=== PATIENT | female | born 1985 | race Caucasian/White ===

== ENCOUNTER 2021-04-21 16:31 | Outpatient (CLI) | payer OTHER, SELFPAY ==
--- NOTE | 2021-04-21 16:46 | XR_ITS ---
WS: [id number] Left foot, 3 views, 04/21/2021 Clinical Data: LT. FOOT PAIN Comparison: None. Findings: No fractures or dislocations are seen. No bone destruction or erosion is noted. The joint spaces and soft tissues are normal. A ring around the second toe obscures minimal detail. There is a plantar spur and an Achilles spur. XR/XR foot LT min 3V* [id number] Impression: Negative left foot.
== END 2021-04-21 16:32 | disposition home or self-care (01) ==
PROVIDERS: Visit Provider Nurse Practitioner Family
DX: M79.672 Pain in left foot (principal)
CPT/HCPCS: 73630

== ENCOUNTER 2021-06-30 16:37 | Outpatient (CLI) | payer OTHER, SELFPAY | END 2021-06-30 16:38 | disposition home or self-care (01) | LOC: SPT 16:37 | PROVIDERS: Visit Provider Podiatrist Foot & Ankle Surgery | DX: Z46.89 Encounter for fitting and adjustment of other specified devices (principal); M76.72 Peroneal tendinitis, left leg | CPT/HCPCS: 97760; L4361 ==

== ENCOUNTER 2025-08-04 16:48 | Emergency (ER) | payer OTHER, SELFPAY ==
--- OUTSIDE RECORDS SUMMARY | 2025-08-04 16:55 | XMS_ITS | Data Portability ---
Author Organization AIRAM [facility], [place], [facility] Address [address] [facility] [address] [place] [address] Care Team Providers Care Gaming Department Head Name Role Phone JUSTINE KHAN Primary Care Provider Unavaila ble Assessment Encounter Date Assessment Date Assessment LastModified by Organization Details LastModified Time 08/15/2023 08/15/2023 Rescheduled. Not available 08/17/2023 23:57:45 09/19/2023 09/19/2023 We discussed options including removing her IUD. She will consider the options and let us know if when she decides she wants it removed. Not available 09/21/2023 06:45:26 Plan of Treatment Reminders Order Date Submit Date Provider Last Modified By Organization Details Last Modified Time Details Appointments None recorded. Lab beta-HCG, qualitative , serum or plasma 2023 024 [employer] [facility], [address] [facility] [address], [address] [place], [id number], 4 21:11:40 CBC 2023 024 [facility], [address], [address], [place], [address], 4 11:48:42 prolactin, serum 2023 024 [employer] [facility], [address] [facility] , [address], [place], [id number], 4 21:11:39 TSH, serum or plasma [address] [facility] ([facility]), [address] [place], [address], 4 14:31:19 FSH (follicle-s timulating hormone), serum 2023 024 [employer] [facility], [address] [facility] , [address], [place], [address], 4 21:11:38 testosteron e, free, serum 2023 024 [employer] [facility], [address] [facility] , [address], [place], [address], 4 21:11:40 estradiol, serum 2023 024 [facility] [employer] [facility], [address] [facility] , [address], [place], [address], 4 21:11:39 Referral orthopedic surgeon referral 2024 025 [email or web address] 4 Judith Nicole MD, [address] [place], [address], 5 08:44:31 Procedures None recorded. Surgeries None recorded. Imaging XR, knee, 3 view 2024 025 [email or web address] 2 [facility] ([facility]), [address] [place], [address], 5 15:30:20 MRI, knee, w/o contrast 2024 025 [email or web address] 4 [employer] [facility], [address] [place] [address], [address], 5 08:44:17 US, transvagina l - [id number] 2023 024 [email or web address] 3 [facility] ([facility]), [address] [place], [address], 4 08:29:20 US, pelvis 2023 024 [email or web address] 2 [facility] ([facility]), [address] [place], [address], 4 13:37:32 Medication Orders None recorded. Patient TargetsNo targets recorded. Patient InstructionsNo instructions recorded. Reason for Referral Orthopedic Surgeon Referral for Pain of right knee joint Referring Physician: Sonam Meneses, Family Medicine, Encounter Date: 07/15/2025 Results Created Date Observation Date Name Description Value Unit Range Abnormal Flag Note LastModifiedBy Organization Detail LastModifiedTime 03/14/20 24 03/14/2024 CBC WBC 6.4 x10 4.0-10 .5 Not Available [facility] [address] [facility] [address], [place], [address], 03/14/2024 11:48:42 03/14/20 24 03/14/2024 CBC RBC 5.27 x10 3.50-5 .50 Not Available [facility] [address] [facility] [address] [facility] [address], [place], [address], 03/14/2024 11:48:42 03/14/20 24 03/14/2024 CBC HGB 13.5 g/dL 12.0-1 6.0 Not Available [facility] [address] [facility] [address] [facility] [address], [place], [address], 03/14/2024 11:48:42 03/14/20 24 03/14/2024 CBC HCT 41.3 % 37.0-4 7.0 Not Available [facility] [address] [facility] [address] [facility] [address], [place], [address], 03/14/2024 11:48:42 03/14/20 24 03/14/2024 CBC MCV 78.4 fL 80.0-9 9.9 low Not Available [facility] [address] [facility] [address], [place], [address], 03/14/2024 11:48:42 03/14/20 24 03/14/2024 CBC MCH 25.6 pg 27.0-3 2.0 low Not Available [facility] [address] [facility] [address], [place], [address], 03/14/2024 11:48:42 03/14/20 24 03/14/2024 CBC MCHC 32.7 g/dL 32.0-3 6.0 Not Available [facility] [address] [facility] [address], [place], [address], 03/14/2024 11:48:42 03/14/20 24 03/14/2024 CBC RDW 15.5 % 11.5-1 4.5 high Not Available [facility] [address] [place] [facility] [address], [place], [address], 03/14/2024 11:48:42 03/14/20 24 03/14/2024 CBC plt 283.9 x10 140.0- 451.0 Not Available [facility] [address] [facility], [place], [address], 03/14/2024 11:48:42 03/14/20 24 03/14/2024 CBC lymphocytes % 17.9 % 20.0-5 0.0 low Not Available [facility] [address] [place] [address] [facility], [place], [address], 03/14/2024 11:48:42 03/14/20 24 03/14/2024 CBC granulcytes % 73.2 % 30.0-7 0.0 high Not Available [facility] [address] [facility], [place], [address], 03/14/2024 11:48:42 03/14/20 24 03/14/2024 CBC monocytes % 6.7 % 2.0-16 .0 Not Available [facility] [address] [facility] [address], [place], [address], 03/14/2024 11:48:42 03/14/20 24 03/14/2024 CBC granulcytes# 4.7 x10 Not Chio ilable [facility] [address] [address], [place], [address], 03/14/2024 11:48:42 03/14/20 24 03/14/2024 CBC lymphocytes # 1.2 x10 Not Available [facility] [address] [address], [place], [address], 03/14/2024 11:48:42 03/14/20 24 03/14/2024 CBC monocytes # 0.4 x10 Not Avai lable [facility] [address] [address], [place], [address], 03/14/2024 11:48:42 03/14/20 24 03/16/2024 FSH FSH 8.4 mIU/m L normal Refer ence Range Folli cular Phase 2.5-1 0.2 Mid-c ycle Peak 3.1-1 7.7 Lutea l Phase 1.5- 9.1 Postm enopa usal 23.0- 116.3 Not Available [employer] [facility] [address] [place], [address], 03/16/2024 21:11:38 03/14/20 24 03/16/2024 PROLA CTIN prolactin 6.7 NG/mL normal Refer ence Range Femal es Non-p regna nt 3.0-3 0.0 Pregn ant 10.0- 209.0 Postm enopa usal 2.0-2 0.0 Not Available [facility] [address] [place], [address], 03/16/2024 21:11:39 03/14/20 24 03/16/2024 ESTRA DIOL estradiol 117 pg/mL normal Refer ence Range Folli cular Phase : 19-14 4 Mid-C ycle: 64-35 7 Lutea l Phase : 56-21 4 Postm enopa usal: < or = 31 Refer ence range estab lishe d on post- puber reji patie nt popul ation . No pre-p ubert al refer ence range estab lishe d using this assay . For any patie nts for whom low Estra diol level s are antic ipate d (e.g. males , pre-p ubert al child kendall and hypog onada l/pos t-men opaus al femal es), the [facility] Raj [facility] Insti tute Estra diol, Ultra sensi tive, LCMSM S assay is jc lezama (orde r code 30030 ). Pleas e note: patie nts being treat ed with the drug fulve stran t (Fasl odex( R)) have demon strat ed signi fican t inter feren ce in immun oassa y metho ds for estra diol measu remen t. The cross react ivity could lead to false ly eleva eyal estra diol test resul ts leadi ng to an inapp ropri ate clini rhianna asses sment of estro gen statu s. [facility] order code [id number] -Estr adiol , Ultra sensi tive LC/MS /MS demon strat es negli gible cross react ivity with fulve stran t. Not Available [employer] [address] [address] [place], [address], 03/16/2024 21:11:39 03/14/2003/16/2024 HCG, TOTAL , QL HCG, total, ql NEGATI VE see note: normal Refer ence Range : Refer ence Range Non-P regna nt: Negat jesús Pregn ant: Posit jesús Not Available [facility] [address] [address] [place], [address], 03/16/2024 21:11:40 03/14/20 24 03/16/2024 TESTO STERO NE, FREE testosterone , free 2.1 pg/mL 0.2-5. 0 MDF med fusio n [address] [facility] [address] [place] [address] [phone] Ithie kaitlynn Malin MD, PhD Not Available [facility] [address] [place], [address], 03/16/2024 21:11:40 03/14/20 24 03/14/2024 TSH, serum or plasm a TSH 0.67 0.49-3 .82 normal Not Available [facility] ([facility]) [address] [place], [address], 03/14/2024 11:34:35 03/19/20 24 03/19/2024 US, pelvi s No observ ation record ed. [facility] [address] [place], [address], 04/01/2024 19:17:16 07/17/20 25 07/15/2025 XR, knee, 3 view No observ ation record ed. [facility] [address] [place], [address], 07/17/2025 12:36:51 Result Notes None recorded. Procedures Surgical History Date Name Laterality Status Provider Name and Address Organization Details Recorded Time Tonsillectomy completed [facility] 09/19/2023 12:49:59 Appendectomy completed [facility] 09/19/2023 12:50:06 delivery completed [facility] 09/19/2023 12:50:21 Imaging Results None recorded. Procedure Notes None recorded. Medical Equipment None Reported. Allergies Allergen ID Allergen Name Allergen Category Reaction Reaction Severity Criticality Documentation Date Start Date Code Code System Note Provider Name and Address Organization Details Recorded Time 58851 morphine sulfate medicatio n anaphylax is Not available Not available 04/28/2023 66916 RxNorm React ion: Anaph ylaxi s, Diffi culty flakita short; Comme nt: Recor ded 10/15 8:04A M by China doshi er, Offic e Visit ; Promo eyal; Valentina brizuela ce: *; Reaso n: Drug aller gy; ; Not Available [facility] 3 02:29:48 Medications Name Sig Start Date Stop Date Status Note LastModified by Organization Details LastModified Time carisopro dol 350 mg tablet TAKE 1 TABLET BY MOUTH AT BEDTIME 07/15 completed Not Available Not Available Not Available azithromy cyrus 250 mg tablet TAKE 2 TABLETS BY MOUTH ON DAY 1, AND THEN TAKE 1 TABLET BY MOUTH ONCE A DAY ON DAY 2 THROUGH DAY 5 09/19 completed Not Available Not Available Not Available hydrocodo ne 5 mg-acetam inophen 325 mg tablet TAKE 1 TABLET BY MOUTH EVERY 4 HOURS NEEDED FOR MODERATE PAIN AFTER SURGERY 03/14 completed Not Available Not Available Not Available omeprazol e 40 mg capsule,d elayed release TAKE 1 CAPSULE BY MOUTH ONCE DAILY 03/14 completed Not Available Not Available Not Available pantopraz ole 20 mg tablet,de layed release TAKE 1 TABLET BY MOUTH ONCE DAILY 03/14 completed Not Available Not Available Not Available alprazola m 0.25 mg tablet TAKE 1 TABLET BY MOUTH TWICE DAILY 09/19 completed Not Available Not Available Not Available famotidin e 20 mg tablet TAKE 1 TABLET BY MOUTH TWICE DAILY 09/19 completed Not Available Not Available Not Available metoprolo l succinate ER 25 mg tablet,ex tended release 24 hr TAKE 1 TABLET BY MOUTH ONCE DAILY 09/19 completed Not Available Not Available Not Available epinephri ne 0.3 mg/0.3 mL injection , auto-inje ctor INJECT CONTENTS OF 1 PEN INTRAMUS CULARLY NEEDED FOR ALLERGIC REACTION . MAY REPEAT ONE TIME active Not Available Not Available No t Available doxycycli ne hyclate 100 mg tablet TAKE 1 TABLET BY MOUTH TWICE DAILY 07/15 completed Not Available Not Available Not Available progester one micronize d 100 mg capsule TAKE 1 CAPSULE BY MOUTH ONCE DAILY AT BEDTIME HOLD FOR 5 DAYS WHEN MENSES STARTS 03/14 completed Not Available Not Available Not Available amoxicill in 875 mg-potass ium clavulana te 125 mg tablet TAKE 1 TABLET BY MOUTH EVERY 12 HOURS FOR 10 DAYS 03/14 completed Not Available Not Available Not Available clindamyc in 1 % lotion APPLY TOPICALL Y TO AFFECTED AREAS TWICE A DAY 07/15 completed Not Available Not Available Not Available Vitamin QD 09/19 completed 0; Recorded 10/15/19 19 8:11AM by China sams, Office Visit; Not Available Not Available Not Available Mirena active 09/09/18 ; 0; Recorded 10/15/19 19 8:11AM by China sams, Office Visit; Not Available Not Available Not Available cholecalc iferol (vitamin D3) 1,250 mcg (50,000 unit) capsule TAKE 1 CAPSULE BY MOUTH ONCE A WEEK 09/19 completed Not Available Not Available Not Available Mounjaro 7.5 mg/0.5 mL subcutane ous pen injector 7.5 MG SUBCUTAN EOUSLY WEEKLY active Not Available Not Available No t Available Mounjaro 15 mg/0.5 mL subcutane ous pen injector 15 MG SUBCUTAN EOUSLY WEEKLY active Not Available Not Available No t Available Mounjaro 10 mg/0.5 mL subcutane ous pen injector INJECT CONTENTS OF ONE PEN SUBCUTAN EOUSLY ONCE A WEEK active Not Available Not Available No t Available Mounjaro 12.5 mg/0.5 mL subcutane ous pen injector INJECT 12.5MG SUBCUT WEEKLY active Not Available Not Available No t Available Mounjaro 2.5 mg/0.5 mL subcutane ous pen injector active Not Available Not Available Not Available Vitals Date Recorded Body height Body mass index (BMI) Body weight Oxygen saturation Oxygen saturation in Arterial blood by Pulse oximetry Heart rate Respiratory rate Body temperature Systolic And Diastolic Provider Name and Address Organization Details Last Updated DateTime 4 160.02 cm 51.6 kg/m2 210962. 18 g 98 % 98 % 70 /min 18 /min 97.9 [degF] 126/72 mm[Hg] CHINA SUAREZ [facility] 4 10:36:09 Date Recorded Body height Body mass index (BMI) Body weight Body temperature Heart rate Oxygen saturation Oxygen saturation in Arterial blood by Pulse oximetry Provider Name and Address Organization Details Last Updated DateTime 5 160.02 cm 58.8 kg/m2 681847. 67 g 98.1 [degF] 105 /min 96 % 96 % Tessie Eugene [facility] 5 14:20:39 Date Recorded Body height Body mass index (BMI) Body weight Oxygen saturation Oxygen saturation in Arterial blood by Pulse oximetry Heart rate Respiratory rate Body temperature Systolic And Diastolic Provider Name and Address Organization Details Last Updated DateTime 3 160.02 cm 51.3 kg/m2 913757. 29 g 98 % 98 % 76 /min 18 /min 97.1 [degF] 130/72 mm[Hg] CHINA SUAREZ [facility] 3 12:46:54 Social History Question Answer Notes LastModified by [employer] Details LastModified Time Tobacco Smoking Status Former Smoker Quit in 2013 CHINA aviles [facility] 09/19/2023 12:49:41 What Was The Date Of Your Most Recent Tobacco Screening? 07/15/2025 [email or web address] Information not available 07/15/2025 What Is Your Relationship Status? Information not available 09/19/2023 Sex: Unknown Functional Status Question Answer Note LastModified by Organizat ion Details LastModified Time Do you use any illicit or recreational drugs? No Information not available 09/19/2023 What is your level of alcohol consumption? None Information not available 09/19/2023 Are you able to care for yourself independently? Yes Information not available 09/19/2023 Mental Status None recorded. Family History Relationship Description Onset Age of this Age Resolved Age Notes LastModified by Organization Details LastModified Time Maternal Grandmother Hypertensive disorder [email or web address] Not available 12:49:15 Medical History No medical history recorded. Gynecological HistoryNo gynecological history recorded. Obstetrics History GPAL:G 0 P 0 0 0 0 Immunizations Vaccine Type Date Status Note Provider Nam e and Address Organization Details Recorded Time Tdap 05/28/2018 completed TREBA NEUSCHWANDER null, [facility] 09/19/2023 12:47:30 Hep B, unspecified formulation 02/22/2000 completed TREBA NEUSCHWANDER null, [facility] 09/19/2023 12:47:30 Hep B, unspecified formulation 08/22/1999 completed TREBA NEUSCHWANDER null, [facility] 09/19/2023 12:47:30 Hep B, unspecified formulation 09/26/1999 completed TREBA NEUSCHWANDER null, [facility] 09/19/2023 12:47:30 Past Encounters Encounter ID Performer Location Encounter Start Date Encounter Closed Date Diagnosis/Indication Diagnosis SNOMED-CT Code Diagnosis ICD10 Code Diagnosis IMO Codes Diagnosis Note [id number] Justine Khan MD [facility] ([facility]) [address] [place] [phone] 08/15/2023 09:12:40 08/17/2023 23:57:59 [id number] Justine Khan MD [facility] ([facility]) [address] [place] [phone] 09/19/2023 12:33:28 09/19/2023 15:27:03 Irregular periods 82118554 N92.6 Contracept ion care management 754181165 Z30.9 [id number] Justine Khan MD [facility]) [address] [place] [phone] 03/14/2024 09:53:41 03/14/2024 11:37:59 Low back pain 545681818 M54.50 Irregular periods 923806 07 N92.6 IUD check 629442075 Z30. 431 Abnormal progesterone 13 8594752 R94.7 Amenorrhea 70280942 N91. 2 Pain in pelvis 48394422 R10.2 [id number] Justine Khan MD [facility] ([facility]) [address] [place] [address] 03/19/2024 09:02:26 03/19/2024 14:08:57 Irregular intermenstrual bleeding 31997591 N92.1 [id number] ZAID VICTOR [facility] ([facility]) [address] [place] [address] 07/15/2025 14:07:30 07/15/2025 15:16:21 Pain of right knee joint 2681659945 41311 M25.561 [id number] Will send X ray to radiology. Will order MRI and refer to [facility] orthopedic s. Jonas wrap applied. RICE. OTC IBU/tyleno l as needed for pain. RTC with any new or worsening symptoms in 2 weeks. Health Concerns Section Related Observation LastModified by Organization Detai ls LastModified Time None Recorded Concern Status LastModified by Organization Details LastModified Time None Recorded Advance Directives Directive None Recorded Payers Insurance Date Sequence Insurance Name Policy Number Policy Escobar Covered Member ID Escobar Member ID Guarantor Name 07/15/2025 1 [facility] [id number] Cal Wray [id number] Cal Wray 07/15/2025 JENNY REYES [id number] [facility] Cal Wray Notes Date Note Type Note Provider Name and Address Organization Details Recorded Time 09/19/2023 text/html ROS as noted in the HPI Pt had a IUD placed 08/2018, at that time she was told to have it removed in 5 years. Pt states now they say it is good for 8 years she has some questions anout getting it removed, pt states the last 5 months she has had irregular bleeding, she had bleeding every 2 to 4 weeks for the last few months, pt states she has been having breast tenderness and cramping the last few months. Pt is scheduled to have her gallblader removed tomorrw and was told her liver and spleen are enlarged. Pt is taking Monjaro and her dose has been lowered to 12.5 untill after her surgery and then it will go back up to 15. Pt states her last pap was 2 yrs ago and was WNL. Justine Khan MD [address] [place] [address], [phone], [facility] 09/21/2023 06:45:47 03/14/2024 text/html ROS as noted in the HPI Pt states she is here for IUD check and to talk about progesterone, she had it checked and she was very low she was prescribed progesterone 100mg cap but she has alpha gal but cant take it because it only comes in capsules. Pt would like to see if there is another option, Pt states last week she had [place] the [place] and her lower back started hurting/cramping and the next morning she had dark heavy bleeding for a hour and all the pain went away. Justine Khan MD [address] [place] [address], [phone], [facility] 03/19/2024 07:30:15 07/15/2025 text/html ROS as noted in the HPI walk in pt DOI: 06/19/2025PT works at [employer] and she was at the homecoming parade and bent over and right knee popped on 06/19. She is still having swelling and popping of that knee.Pain is located behind the knee and sometimes in the anterior aspect as well. Patient complains of pain and swelling over the medial aspect as well. States that she was seen by [facility] on date of injury and a MRI was ordered. Has not been done. ZAID VICTOR [address] [place] [address], [phone], [facility] 07/15/2025 15:06:59 OBGyn Episode No OBEpisode recorded.
--- OUTSIDE RECORDS SUMMARY | 2025-08-04 16:55 | XMS_ITS | Encounter Summary ---
Author Organization [facility] Address [address] [place] [address] Care Team Providers Care Retail Client Solutions Analyst Name Role Phone Unavailable Primary Care Provider Unavailabl e Encounter Details Date Type Department Care Team (Late st Contact Info) Description 03/06/2018 Ancillary Orders [facility] External Department [address] 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 Several morphology deficiencies remain. Follow up exam may be considered. However, doubt that subsequent attempt(s) would be successful in completing the morphology survey. Narrative 04/08/2018 6:09 PM T [facility] Follow Up Pat. Name: CAL WRAY Study Date: 04/08/2018 3:24pm Pat. NO: [id number] Referring MD: JUSTINE KHAN Site: [facility] Senior Partner: Sandhya Ibarra : 1985 Age: 32 INDICATION Other Spec. Disease-Condition Complicating History of anomaly CODING Diagnosis O99.89: Other Spec. Disease/Condition Complicating Z3A.26: Weeks Gestation of Procedures 66711: OB US Follow-up HISTORY OB History 2. Para 1 METHOD Transabdominal ultrasound examination [place] . Number of fetuses: 1. DATING Method of dating: based on the external assessment GA by stated dating 26 w + 6 d BRENNA by stated dating : 07/09/2018 Ultrasound examination on: 04/08/2018 GA by U/S based upon: AC, BPD, EFW, Femur, HC GA by U/S 28 w + 3 d BRENNA by U/S: 06/28/2018 Assigned: Dating performed on 04/08/2018, based on the external assessment Assigned GA 26 w + 6 d Assigned BRENNA: 07/09/2018 BIOMETRY Main Biometry: BPD 72.1 mm 29w 0d 94% Hadlock OFD 94.3 mm 30w 3d >99% Zonia HC 267.0 mm 29w 1d 89% Hadlock AC 242.2 mm 28w 3d 87% Hadlock Femur 52.0 mm 27w 5d 62% Hadlock HC / AC 1.10 44% Nicolaides Weight Calculation: EFW 1,209 g 28w 0d 90% Hadlock EFW (lb,oz) 2 lb 11 oz EFW by Hadlock ([id number]) Head / Face / Neck Biometry: Cephalic index 0.76 26% Nicolaides Pouring Crane Operator 4.7 mm Extremities / Bony Struc Biometry: FL / BPD 0.72 FL / HC 0.19 FL / AC 0.21 Other Structures Biometry: FHR 140 bpm GENERAL EVALUATION Cardiac activity present. FHR 140 bpm. Presentation transverse. Placenta posterior. ANATOMY 4-chamber view: previously seen. The following structures appear normal: Midline falx. Cavum septi pellucidi. Stomach: Fluid filled stomach identifed.. Kidneys: Kidneys appear normal bilaterally.. Bladder: Fluid filled bladder identified.. Spine. The following structures could not be adequately visualized: Cisterna magna. Cerebellum. LVOT view. RVOT view. Gender: male. Procedure Note Jayjay Marcano II, MD - 04/08/2018 [facility] Follow Up Pat. Name:Cristino WRAY Date:04/08/2018 3:24pm Pat. NO: [id number] MD:JUSTINE KHAN [facility] Ibar[facility] :1985Age:32 INDICATION Other Spec. Disease-Condition Complicating History of anomaly CODING Diagnosis O99.89: Other Spec. Disease/Condition Complicating Z3A.26: Weeks Gestation of Procedures 16854: OB US Follow-up HISTORY OB History 2. Para 1 METHOD Transabdominal ultrasound examination [place] . Number of fetuses: 1. DATING Method of dating:based on the external assessment GA by stated dating 26 w + 6 d BRENNA by stated dating :07/09/2018 Ultrasound examination on:04/08/2018 GA by U/S based upon:AC, BPD, EFW, Femur, HC GA by U/S28 w + 3 d BRENNA by U/S:06/28/2018 Assigned:Dating performed on 04/08/2018, based on the externalassessment Assigned GA26 w + 6 d Assigned BRENNA:07/09/2018 BIOMETRY Main Biometry: BPD 72.1 mm 29w 0d94% Hadlock OFD 94.3 mm 30w 3d >99% Zonia HC 267.0 mm 29w 1d89% Hadlock AC 242.2 mm 28w 3d87% Hadlock Femur 52.0 mm 27w 5d62% Hadlock HC / AC 1.1044% Nicolaides Weight Calculation: EFW 1,209 g 28w 0d90% Hadlock EFW (lb,oz) 2 lb 11 oz EFW by Hadlock ([id number]) Head / Face / Neck Biometry: Cephalic index 0.7626% Nicolaides Pouring Crane Operator 4.7 mm Extremities / Bony Struc Biometry: FL / BPD 0.72 FL / HC 0.19 FL / AC 0.21 Other Structures Biometry: FHR 140 bpm GENERAL EVALUATION Cardiac activity present. FHR 140 bpm. Presentation transverse. Placenta posterior. ANATOMY 4-chamber view: previously seen. The following structures appear normal: Midline falx. Cavum septi pellucidi. Stomach: Fluid filled stomach identifed.. Kidneys: Kidneys appear normal bilaterally.. Bladder: Fluid filled bladder identified.. Spine. The following structures could not be adequately visualized: Cisterna magna. Cerebellum. LVOT view. RVOT view. Gender: male. IMPRESSION Findings Comment Estimated weight is large for gestational age Incomplete detailed anatomy The exam is compromised by the patient body habitus. Several morphology deficiencies remain. Follow up exam may be considered. However, doubt that subsequent attempt(s) would be successful in completing the morphology survey. us Justine Khan MD ORDERABLES Final Resu lt documented in this encounter Visit Diagnoses Diagnosis High risk , antepartum High risk , antepartum documented in this encounter
--- OUTSIDE RECORDS SUMMARY | 2025-08-04 16:55 | XMS_ITS | Encounter Summary ---
Author Organization [facility] Address [address] [place] [address] Care Team Providers Care Wildlife Veterinarian Name Role Phone Unavailable Primary Care Provider Unavailabl e Encounter Details Date Type Department Care Team (Late st Contact Info) Description 03/04/2018 Ancillary Orders [facility] External Department [address] 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 Narrative 03/07/2018 4:44 PM T [facility] US Pat. Name: CAL WRAY Study Date: 03/06/2018 4:06pm Pat. NO: [id number] Referring MD: JUSTINE KHAN Site: [facility] Diecast Machine Operator: Chavez Vick : 1985 Age: 32 INDICATION Other Condition Dx: High risk , antepartum [O09.90 (ICD-10-CM)] CODING Diagnosis XXX.10: Other condition Procedures 30352: OB with Detail (Comprehensive) HISTORY OB History 2. Para 1 METHOD Transabdominal ultrasound examination. View: Suboptimal view: restricted by patient size. Adequate [place]unkett . Number of fetuses: 1. DATING Method of dating: based on the external assessment GA by stated dating 22 w + 1 d BRENNA by stated dating : 07/09/2018 Ultrasound examination on: 03/06/2018 GA by U/S based upon: AC, BPD, EFW, Femur, HC GA by U/S 23 w + 4 d BRENNA by U/S: 06/29/2018 Assigned: Dating performed on 03/06/2018, based on the external assessment Assigned GA 22 w + 1 d Assigned BRENNA: 07/09/2018 BIOMETRY Main Biometry: BPD 56.9 mm 23w 3d 88% Hadlock OFD 72.7 mm 24w 1d 95% Zonia HC 208.0 mm 22w 6d 69% Hadlock AC 190.3 mm 23w 5d 88% Hadlock Femur 43.6 mm 24w 2d 95% Hadlock Humerus 40.5 mm 24w 4d 98% Zonia HC / AC 1.09 15% Nicolaides Weight Calculation: EFW 637 g 23w 5d 99% Hadlock EFW (lb,oz) 1 lb 6 oz EFW by Hadlock ([id number]) Head / Face / Neck Biometry: Cephalic index 0.78 47% Nicolaides Digital Media Buyer 3.5 mm Extremities / Bony Struc Biometry: Radius 33.7 mm 87% Chitty Ulna 38.1 mm 25w 1d 98% Zonia FL / BPD 0.77 FL / HC 0.21 FL / AC 0.23 Tibia 36.2 mm 23w 4d 90% Zonia Fibula 34.5 mm 22w 5d 63% Zonia Other Structures Biometry: FHR 148 bpm GENERAL EVALUATION Cardiac activity present. FHR 148 bpm. movements present. Presentation transverse. Placenta posterior. Umbilical cord 3 vessel cord, placental cord insertion is central. Amniotic fluid Appears normal. ANATOMY The following structures appear normal: Cranium. Head size. Head shape. Third ventricle. Fourth ventricle. Parenchyma. Midline falx. Cavum septi pellucidi. Thalami. Vermis. Neck. Face: Profile, nose and upper lip appear normal Nasal bone present. Maxilla. Palate. Mandible. Situs. 4-chamber view. 3-vessel view. 0-zhbkgs-bymodbm view. High short axis view. Aortic arch view. Bicaval view: IVC/SVC appear nomal. Thorax: No thoracic abnormalities detected. Right lung. Left lung. Diaphragm. Abdominal wall. Cord insertion. Stomach: Stomach size and situs appear normal. Liver. Bowel. Kidneys: Kidneys appear normal bilaterally.. Bladder: size and shape. Arms: Long bones of the upper extremities appear bilaterally symmetric and have normal appearing architecture.. Legs: Long bones of the lower extremeties appear bilaterally symmetric and have normal appearing architecture. . Position of feet: Configuration of the feet appear normal.. The following structures could not be adequately visualized: Brain. LVOT view. RVOT view. Spine. The following structures could not be visualized: Cisterna magna. Posterior fossa. Cerebellum. Cerebrum. Cerebellar lobes. Sacral spine. Position of hands. Gender: male. MATERNAL STRUCTURES Uterus Unremarkable Cervix Unremarkable Right Ovary Appearance: No adnexal mass identified. Left Ovary Appearance: No adnexal mass identified. Cul de Sac Imaging of the cul-de-sac is unremarkable. FOLLOW-UP Arranged Procedure Note Jayjay Marcano II, MD - 03/07/2018 [facility] Pat. Name:Cristino WRAY Date:03/06/2018 4:06pm Pat. NO: [id number] MD:JUSTINE KHAN [facility] :1985Age:32 INDICATION Other Condition Dx: High risk , antepartum [O09.90 (ICD-10-CM)] CODING Diagnosis XXX.10: Other condition Procedures 47719: OB with Detail (Comprehensive) HISTORY OB History 2. Para 1 METHOD Transabdominal ultrasound examination. View: Suboptimal view: restrictedby patient size. Adequate [place]ett . Number of fetuses: 1. DATING Method of dating:based on the external assessment GA by stated dating 22 w + 1 d BRENNA by stated dating :07/09/2018 Ultrasound examination on:03/06/2018 GA by U/S based upon:AC, BPD, EFW, Femur, HC GA by U/S23 w + 4 d BRENNA by U/S:06/29/2018 Assigned:Dating performed on 03/06/2018, based on the externalassessment Assigned GA22 w + 1 d Assigned BRENNA:07/09/2018 BIOMETRY Main Biometry: BPD 56.9 mm 23w 3d88% Hadlock OFD 72.7 mm 24w 1d95% Zonia HC 208.0 mm 22w 6d69% Hadlock AC 190.3 mm 23w 5d88% Hadlock Femur 43.6 mm 24w 2d95% Hadlock Humerus 40.5 mm 24w 4d98% Zonia HC / AC 1.0915% Nicolaides Weight Calculation: EFW 637 g 23w 5d99% Hadlock EFW (lb,oz) 1 lb 6 oz EFW by Hadlock ([id number]) Head / Face / Neck Biometry: Cephalic index 0.7847% Nicolaides Digital Media Buyer 3.5 mm Extremities / Bony Struc Biometry: Radius 33.7 mm87% Chitty Ulna 38.1 mm 25w 1d98% Zonia FL / BPD 0.77 FL / HC 0.21 FL / AC 0.23 Tibia 36.2 mm 23w 4d90% Zonia Fibula 34.5 mm 22w 5d63% Zonia Other Structures Biometry: FHR 148 bpm GENERAL EVALUATION Cardiac activity present. FHR 148 bpm. movements present. Presentation transverse. Placenta posterior. Umbilical cord 3 vessel cord, placental cord insertion is central. Amniotic fluid Appears normal. ANATOMY The following structures appear normal: Cranium. Head size. Head shape. Third ventricle. Fourth ventricle. Parenchyma. Midline falx. Cavum septi pellucidi. Thalami. Vermis. Neck. Face: Profile, nose and upper lip appear normal Nasal bone present. Maxilla. Palate. Mandible. Situs. 4-chamber view. 3-vessel view. 8-yukkkp-ipeyabr view. High short axis view. Aortic arch view. Bicaval view: IVC/SVC appear nomal. Thorax: No thoracic abnormalities detected. Right lung. Left lung. Diaphragm. Abdominal wall. Cord insertion. Stomach: Stomach size and situs appear normal. Liver. Bowel. Kidneys: Kidneys appear normal bilaterally.. Bladder: size and shape. Arms: Long bones of the upper extremities appear bilaterally symmetric and have normal appearing architecture.. Legs: Long bones of the lower extremeties appear bilaterally symmetric and have normal appearing architecture. . Position of feet: Configuration of the feet appear normal.. The following structures could not be adequately visualized: Brain. LVOT view. RVOT view. Spine. The following structures could not be visualized: Cisterna magna. Posterior fossa. Cerebellum. Cerebrum. Cerebellar lobes. Sacral spine. Position of hands. Gender: male. MATERNAL STRUCTURES Uterus Unremarkable Cervix Unremarkable Right Ovary Appearance: No adnexal mass identified. Left Ovary Appearance: No adnexal mass identified. Cul de Sac Imaging of the cul-de-sac is unremarkable. FOLLOW-UP Arranged IMPRESSION Findings Comment Estimated weight is large for gestational age abnormalities are not identified Incomplete anatomical survey due to the maternal body habitus. us Justine Khan MD ORDERABLES Final Resu lt documented in this encounter Visit Diagnoses Diagnosis High risk , antepartum High risk , antepartum documented in this encounter
--- OUTSIDE RECORDS SUMMARY | 2025-08-04 16:55 | XMS_ITS | Clinical Summary ---
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 Gender Identity Not on file Sexual Orientation Not on file Plan of Treatment Health Maintenance Due Date Last Done Comments DTAP/TDAP/TD VACCINES (1 - Tdap) 2006 HEPATITIS B VACCINES (1 of 3 - 19+ 3-dose series) 11/02 HPV/Cotest (21-29) 2008 HPV VACCINES (1 - 3-dose SCDM series) 2014 CERVICAL CANCER SCREENING 2017 HPV/Cotest (30-65) 2017 PAP SMEAR 2017 INFLUENZA VACCINE (#1) [address] [place] [id number] [employer] Care Teams Ux Lead Relationship Specialty Start Date End Date Seun Trevino MD [address] [place] [id number] PCP - General Family Practice 07/04/22
--- OUTSIDE RECORDS SUMMARY | 2025-08-04 16:55 | XMS_ITS | Clinical Summary ---
Author Organization [facility] Address [address] 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
[2025-08-04 17:08] VITALS: BP 126/83; PULSE 76; TEMP 36.7; O2SAT 97
--- NOTE | 2025-08-04 17:08 | USR_ITS ---
PROCEDURE INFORMATION: Exam: US Duplex Right Lower Extremity Veins, Limited Exam date and time: 08/04/2025 5:26 PM Age: 39 years old Clinical indication: Pain; Leg, lower; Right; Additional info: Right-sided calf pain and swelling. Concern for dvt TECHNIQUE: Imaging protocol: Real-time duplex ultrasound of the right extremity with 2-D magana scale, color Doppler flow and spectral waveform analysis including responses to compression and other maneuvers (when performed) with image documentation. Limited exam was focused on the right lower extremity veins. COMPARISON: US transvaginal [id number] 03/19/2024 8:13 AM FINDINGS: Right deep veins: Unremarkable. The common femoral, femoral, proximal profunda femoral and popliteal veins are patent without thrombus. Normal Doppler waveforms. Normal compressibility and/or augmentation response. Superficial veins: Greater saphenous vein at the saphenofemoral junction is patent without thrombus. Soft tissues: Unremarkable. US/[place] [id number] IMPRESSION: No evidence of deep vein thrombosis.
--- NOTE | 2025-08-04 17:24 | ED_ITS ---
HPI - Extremity Problem General: Chief complaint: Extremity Problem,Nontraumatic Stated complaint: R lower leg poss blood clot reffered by doc Sob Time Seen by Provider: 08/04/25 16:53 History of Present Illness: 39-year-old female with a history of mor bid obesity who presents to the emergency room with left calf pain. She was sent here by her primary care provider. Said she had hurt her leg and had used some compression therapy. Shortly after that she had a couple brief episodes of shortness of breath. No chest pain. She is not tachycardic or hypoxemic on presentation. She has no visual signs of DVT. She complains of pain in the lateral upper left calf area. Said there was some bruising there. Related Data Home Medications ?Medication ?Instructions ?Recorded ?Confirmed levonorgestrel (Mirena) intrauterine 07/27/25 Allergies Allergy/AdvReac Type Severity Reaction Status Date / Time morphine Allergy Unknown unknown Verified 08/04/25 17:14 Review of Systems Narrative: Constitutional symptoms: Negative except as documented in HPI. Skin symptoms: Negative except as documented in HPI. Eye symptoms: Negative except as documented in HPI. ENMT symptoms: Negative except as documented in HPI. Respiratory symptoms: Negative except as documented in HPI. Cardiovascular symptoms: Negative except as documented in HPI. Gastrointestinal symptoms: Negative except as documented in HPI. Genitourinary symptoms: Negative except as documented in HPI. Musculoskeletal symptoms: Negative except as documented in HPI. Neurologic symptoms: Negative except as documented in HPI. Psychiatric symptoms: Negative except as documented in HPI. Endocrine symptoms: Negative except as documented in HPI. [facility] ED PFSH: Social History (Updated 06/19/25 @ 16:02 by Fariba Medina NP) Smoking and tobacco/nicotine status: former use of tobacco/nicotine Second hand smoke exposure: No Alcohol intake: never Substance/Drug Use: never Physical Exam Narrative: EXAM NARRATIVE: General: Alert, no acute distress. Skin: Warm, dry. Head: Normocephalic, atraumatic. Neck: Supple, trachea midline. Eye: Extraocular movements are intact. Ears, nose, mouth and throat: mucosa moist. Cardiovascular: Regular, Normal peripheral perfusion. Respiratory: Lungs are clear to auscultation, respirations are non-labored, breath sounds are equal, Symmetrical chest wall expansion. Gastrointestinal: Soft, Nontender, Non distended Musculoskeletal: Normal ROM, no deformity. Neurological: Alert and oriented, No focal neurological deficit observed. Psychiatric: Cooperative, appropriate mood & affect. 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 Patient most recently seen here around a week ago in Dr. [facility] and orthopedics for knee injury. I reviewed the patient's current home meds control is the only listed active medication Alternate historians: Differential diagnosis: including but not limited to and based on the above HPI, review of systems and physical exam: Fairly low suspicion for DVT/PE. Will order an ultrasound as her primary sent her here for this. Orders placed to evaluate differential diagnosis based on the above differential, HPI and physical exam Ultrasound of the lower extremity: No DVT. This was reviewed and interpreted by myself the emergency room physician. I also reviewed the radiology report. Lab Review: Laboratory results were reviewed and interpreted by myself the emergency room physician. No lab work indicated today. Assessment of risk: Level of risk: Low risk Hospitalization considerations: No considerations of admission. Clinical decision support: Caprini Score for Venous Thromboembolism (2005) from [email or web address] on 08/04/2025 All calculations should be rechecked by clinician prior to use RESULT SUMMARY: 2 points Caprini VTE Score Low risk Recommended prophylaxis: Pneumatic compression devices ? graduated compression stockings Minimal VTE risk During hospitalization for duration of chemoprophylaxis INPUTS: Age, years ?> 0 = <=0 Sex ?> 1 = Female Type of surgery ?> 0 = None Major surgery ?> 0 = No CHF ?> 0 = No Sepsis ?> 0 = No Pneumonia ?> 0 = No or ?> 0 = No Immobilizing plaster cast ?> 0 = No Hip, pelvis, or leg fracture ?> 0 = No Stroke ?> 0 = No Multiple trauma ?> 0 = No Acute spinal cord injury causing paralysis ?> 0 = No Varicose veins ?> 0 = No Current swollen legs ?> 0 = No Current central venous access ?> 0 = No History of DVT/PE ?> 0 = No Family history of thrombosis ?> 0 = No Positive Factor V Leiden ?> 0 = No Positive prothrombin [id number] ?> 0 = No Elevated serum homocysteine ?> 0 = No Positive lupus anticoagulant ?> 0 = No Elevated anticardiolipin antibody ?> 0 = No Heparin-induced thrombocytopenia ?> 0 = No Other congenital or acquired thrombophilia ?> 0 = No Mobility ?> 0 = Normal, out of bed History of inflammatory bowel disease ?> 0 = No BMI >25 ?> 1 = Yes Acute [place] ?> 0 = No COPD ?> 0 = No Present or previous malignancy ?> 0 = No Other risk factors ?> 0 = No On oral contraceptives or hormone replacement ?> 1 = Yes History of unexplained stillborn, >= spontaneous abortions, or premature with toxemia or growth-restricted ?> 0 = No Reexamination: Patient remained stable. No increased work of breathing. No altered mental status. No focal motor deficits. I discussed she is very low risk for PE. Tests considered but not done: With negative DVT and a negative Caprini score and no tachycardia or hypoxemia she likely does not have a blood clot and a CTA is not indicated today. Assessment and plan: Calf pain - Discharged home - Discussed plan with patient. Answered any questions. - Evaluation and treatment of this problem were appropriate in the emergency setting. Lab Data Radiology Impressions Venous Duplex 08/04/25 17:08 IMPRESSION: No evidence of deep vein thrombosis. All radiology interpretation(s) finalized by discharge Discharge Plan Discharge Patient Disposition: Home Clinical Impression: Calf pain Condition: Stable Prescriptions: No Action Mirena 21 mcg/24hr (up to 8 yrs) 52 mg intrauterine device intrauterine Discharge Orders: Discharge ED (Routine); Ordered 08/04/25 Ordered By: Carolann Arellano Referrals: Christina Johnson [Primary Care Provider, Family Practice] Discharge Diet: Usual diet Discharge Activity: Increase activity as tolerated Patient Instructions: Leg Pain (ED), Opioid Safety, Pain Management, Patient Portal & Sulema Instructions Activity Restrictions/Additional Instructions: Thank you for choosing [facility] for your healthcare needs today. You have been screened and evaluated and felt safe for discharge. Health conditions do change or evolve sometimes and as such it is important that you follow up with your Primary Doctor to be re checked, 3-5 days is a general good time frame for follow up. You are always welcome to return to the ED for re assessment if your symptoms are worsening or you have new concerns Print Language: Persian Coding Level of Care Code ED Signal Integrity Engineer for Renee Grey
[2025-08-04 18:39] VITALS: BP 108/73; PULSE 71; O2SAT 97
[2025-08-04 18:40] VITALS: BP 108/73; PULSE 71; O2SAT 97
== END 2025-08-04 18:44 | disposition home or self-care (01) ==
PROVIDERS: Emergency Provider Emergency Medicine; PCP Nurse Practitioner Family
DX: M79.604 Pain in right leg (principal)
CPT/HCPCS: 93971; 99284

== ENCOUNTER 2025-08-17 10:22 | Emergency (ER) | payer SELFPAY ==
--- NOTE | 2025-08-17 10:26 | CT_ITS ---
WS: [id number] CT HEAD TECHNIQUE: Noncontrast CT of the head obtained from the skullbase to the vertex. CLINICAL INFORMATION: Trauma COMPARISON: 2016 DLP: 1009.[address] scans at [facility] use at least one of these dose optimization techniques: automated exposure control; mA and/or kV adjustment per patient size (includes targeted exams where dose is matched to clinical indication); or iterative reconstruction. FINDINGS: No evidence of intracranial hemorrhage or mass effect. Ventricular system and basal cisterns are patent. No extra-axial fluid collections. No evidence of mass or mass effect. Normal magana-white differentiation. Paranasal sinuses and mastoid air cells are well aerated. Slight LEFT maxillary sinusitis. CT/CT head wo con* [id number] IMPRESSION: 1. No evidence of intracranial hemorrhage or mass effect. 2. No acute intracranial findings.
--- NOTE | 2025-08-17 10:26 | CT_ITS ---
WS: [id number] CT CERVICAL TRAUMA TECHNIQUE: Noncontrast CT of the cervical spine with coronal and sagittal reformatted images. CLINICAL INFORMATION: Trauma COMPARISON: None. DLP: 541.[address] scans at [facility] use at least one of these dose optimization techniques: automated exposure control; mA and/or kV adjustment per patient size (includes targeted exams where dose is matched to clinical indication); or iterative reconstruction. FINDINGS: Mild cervical curve. Normal craniocervical junction. Normal C1-C2 articulation. Dens is normal in appearance. Normal occipital condyles. No high-grade spinal canal narrowing. Normal C1 ring. No evidence of acute fracture or dislocation. Normal prevertebral soft tissues. Mastoids air cells are well aerated. CT/CT cervical spin wo con* [id number] IMPRESSION: No evidence of acute fracture or dislocation.
--- NOTE | 2025-08-17 10:28 | W.ED.GENADLT ---
HPI - General Adult General: Chief complaint: Head Injury Stated complaint: fall Time Seen by Provider: 08/17/25 10:22 History of Present Illness: 39-year-old female presents emergency room after a fall at a gas station she slipped fell hit the back of her head possibly had some loss consciousness. No vomiting -still has a headache. No loss conscious she is also complaining of tailbone pain Associated symptoms: Deny chest pain, dyspnea, headache(s) or rash Related Data Home Medications ?Medication ?Instructions ?Recorded ?Confirmed levonorgestrel (Mirena) intrauterine 07/27/25 07/27/25 Previous Rx's ?Medication ?Instructions ?Recorded promethazine 25 mg tablet 25 mg PO Q6H PRN nausea and 08/17/25 vomiting #20 tabs Allergies Allergy/AdvReac Type Severity Reaction Status Date / Time morphine Allergy Unknown unknown Verified 08/04/25 17:14 Review of Systems Const: Denies: fever(s) or chills Card: Denies: chest pain Resp: Denies: dyspnea GI: Denies: abdominal pain : Denies: dysuria, urinary frequency or urinary urgency Musc: Denies: neck pain or back pain Skin/Breast: Denies: rash Neuro: Reports: dizziness; Denies: headache(s) PFSH ED PFSH: Social History Smoking and tobacco/nicotine status: former use of tobacco/nicotine Second hand smoke exposure: No Alcohol intake: never Substance/Drug Use: never Physical Exam Const: GENERAL APPEARANCE: cooperative ORIENTATION/CONSCIOUSNESS: Yes awake, Yes oriented to person, Yes oriented to place and Yes oriented to time HENMT: COMMON NORMALS: normocephalic, atraumatic and hearing grossly normal bilaterally HEAD & SCALP: normocephalic and atraumatic Resp: COMMON NORMALS: normal respiratory effort, No retractions, No use of accessory muscles and clear to auscultation bilaterally AUSCULTATION: clear to auscultation bilaterally Cardio: COMMON NORMALS: regular rate, regular rhythm and No murmurs present (Cardio) RATE: regular rate RHYTHM: regular rhythm GI: COMMON NORMALS: Soft to palpation and No hepatosplenomegaly present AUSCULTATION: Yes normoactive bowel sounds PALPATION: Yes Soft to palpation, No Tenderness to palpation present (GI), No Guarding due to palpation present (GI) and Yes No hepatosplenomegaly present Extremity: COMMON NORMALS: normal to inspection, capillary refill normal, no clubbing, cyanosis or edema, no calf tenderness and no pedal edema Neuro: SENSORIUM/ORIENTATION: Yes oriented to person, Yes oriented to place and Yes oriented to time Skin: COMMON NORMALS: no rashes or lesions noted GENERAL SKIN EXAM: no rashes or lesions noted Course Vital Signs: Vital signs: Vital Signs Temperature 98.1 F 08/17/25 10:33 Pulse Rate 83 08/17/25 11:51 Respiratory Rate 18 08/17/25 10:33 Blood Pressure 156/64 08/17/25 11:51 Pulse Oximetry 98 08/17/25 11:51 Oxygen Delivery Me thod Room Air 08/17/25 11:51 MDM - General Adult Medical Decision Making CT head neck were normal no acute findings. Patient ambulates out difficulty. Will discharge patient home with promethazine as needed. Discussed concussion diagnosis patient Medical Records I reviewed the patient's medical records. Lab Data I reviewed the patient's lab results. 08/17/25 10:45 08/17/25 10:45 Radiology Impressions Cervical Spine CT 08/17/25 10:26 IMPRESSION: No evidence of acute fracture or dislocation. Head CT 08/17/25 10:26 IMPRESSION: 1. No evidence of intracranial hemorrhage or mass effect. 2. No acute intracranial findings. Sacrum and Coccyx X-Ray 08/17/25 11:37 IMPRESSION: No acute abnormality of the sacrum or coccyx. Laboratory Results WBC 6.59 10^3/uL (3.29-11.43) 08/17/25 10:45 RBC 5.07 10^6/uL (3.85-5.65) 08/17/25 10:45 Hgb 12.80 g/dL (11.27-16.99) 08/17/25 10:45 Hct 41.0 % (36-47) 08/17/25 10:45 MCV 80.9 fl (85-98) L 08/17/25 10:45 MCH 25.2 pg (27-33) L 08/17/25 10:45 MCHC 31.2 g/dL (30-55) 08/17/25 10:45 RDW 14.8 % (12.1-15.1) 08/17/25 10:45 Plt Count 203 10^3/cmm (157-399) 08/17/25 10:45 MPV 12.1 fL (7.4-10.4) H 08/17/25 10:45 Neut % (Auto) 69.7 % 08/17/25 10:45 Lymph % (Auto) 21.5 % 08/17/25 10:45 [place] % (Auto) 6.8 % 08/17/25 10:45 Eos % (Auto) 1.1 % 08/17/25 10:45 Baso % (Auto) 0.3 % 08/17/25 10:45 Neut # (Auto) 4.59 10^3/uL (1.8-7.7) 08/17/25 10:45 Lymph # (Auto) 1.4 10^3/uL (0.8-4.8) 08/17/25 10:45 [place] # (Auto) 0.5 10^3/uL (0.2-0.9) 08/17/25 10:45 Eos # (Auto) 0.1 10^3/uL (0.0-0.8) 08/17/25 10:45 Baso # (Auto) 0.0 10^3/uL (0.0-0.1) 08/17/25 10:45 Nucleated RBC % (auto) 0 % 08/17/25 10:45 Nucleated RBCs # 0.0 /100WBC 08/17/25 10:45 Sodium 137 mmol/L (136-145) 08/17/25 10:45 Potassium 4.3 mmol/L (3.5-5.1) 08/17/25 10:45 Chloride 102 mmol/L (98-107) 08/17/25 10:45 Carbon Dioxide 24 mmol/L (22-29) 08/17/25 10:45 Anion Gap 15.3 (5-19) 08/17/25 10:45 BUN 9 mg/dL (6-20) 08/17/25 10:45 Creatinine 0.7 mg/dL (0.5-0.9) 08/17/25 10:45 GFR Calculation 94.2 mL/min (90-130) 08/17/25 10:45 Glucose 83 mg/dL (65-115) 08/17/25 10:45 Calculated Osmolality 282 mOsm/kg (285-295) L 08/17/25 10:45 Calcium 9.8 mg/dL (8.5-10.5) 08/17/25 10:45 Total Bilirubin 0.4 mg/dL (0.15-1.2) 08/17/25 10:45 AST 42 U/L (0-32) H 08/17/25 10:45 ALT 74 U/L (0-33) H 08/17/25 10:45 Alkaline Phosphatase 103 U/L (35-105) 08/17/25 10:45 Total Protein 6.8 g/dL (6.6-8.7) 08/17/25 10:45 Albumin 4.1 g/dL (3.5-5.2) 08/17/25 10:45 Globulin 2.7 g/dL (1.3-4.6) 08/17/25 10:45 HCG, Qual Negative (Negative) 08/17/25 10:45 Urine Color Yellow (Yellow) 08/17/25 11:51 Urine Appearance Clear (CLEAR) 08/17/25 11:51 Urine pH 6.5 (5-7) 08/17/25 11:51 Ur Specific [place] 1.006 (1.005-1.030) 08/17/25 11:51 Urine Protein Negative (Negative) 08/17/25 11:51 Urine Glucose (UA) Negative (Normal) 08/17/25 11:51 Urine Ketones Negative (Negative) 08/17/25 11:51 Urine Blood Negative (Negative) 08/17/25 11:51 Urine Nitrate Negative (Negative) 08/17/25 11:51 Urine Bilirubin Negative (Negative) 08/17/25 11:51 Urine Urobilinogen 0.2 mg/dL (Negative) 08/17/25 11:51 Ur Leukocyte Esterase Negative (Negative) 08/17/25 11:51 Urine RBC 0-2 /hpf (0-2) 08/17/25 11:51 Urine WBC 0-5 /hpf (0-5) 08/17/25 11:51 Ur Squamous Epith Cells 0-5 /hpf (0-5) 08/17/25 11:51 Uric Acid Crystals N /hpf 08/17/25 11:51 Amorphous Sediment Not Reportable 08/17/25 11:51 Urine Bacteria None seen /hpf (NONE) 08/17/25 11:51 Hyaline Casts 0-4 /lpf H 08/17/25 11:51 All radiology interpretation(s) finalized by discharge Discharge Plan Discharge Patient Disposition: Home Clinical Impression: Concussion without loss of consciousness Qualifiers: Encounter type: initial encounter Qualified Code(s): S06.0X0A - Concussion without loss of consciousness, initial encounter Fall Qualifiers: Encounter type: initial encounter Qualified Code(s): W19.XXXA - Unspecified fall, initial encounter Condition: Stable Prescriptions: New promethazine 25 mg tablet 25 mg PO Q6H PRN (Reason: nausea and vomiting) Qty: 20 0RF No Action Mirena 21 mcg/24hr (up to 8 yrs) 52 mg intrauterine device intrauterine Discharge Orders: Discharge ED (Routine); Ordered 08/17/25 Ordered By: Nuno Shirley Referrals: Christina Johnson [Primary Care Provider, Family Practice] Discharge Diet: Advance as tolerated Discharge Activity: Increase activity as tolerated Patient Instructions: Concussion (ED), Opioid Safety, Pain Management, Patient Portal & Sulema Instructions Activity Restrictions/Additional Instructions: [facility] today. It is very important that you follow up as instructed or that you return to the Emergency Department should you have concerns or if your condition changes or worsens in any way. Emergency department visits are focused on emergent conditions, in some cases you may require further evaluation on an outpatient basis. You were seen in the emergency room after a fall. CT of your head and neck were negative. Also complained of pain in tailbone x-rays of that area was also negative for fracture. He will likely be very sore the next several days. You are given promethazine for nausea you can take Tylenol ibuprofen for headache. (Please note that included in your discharge packet is information concerning opioid safety and pain management. This information is given to all patients were discharged from the ER regardless of their discharge diagnosis or the medicines they usually take or are prescribed.) Print Language: Panamanian Coding Level of Care Code ED Tool And Die Technician for Renee Grey
[2025-08-17 10:33] VITALS: BP 121/86; PULSE 71; RESP 18; TEMP 36.7; O2SAT 97; BMI 58.1
[2025-08-17 10:41] VITALS: BP 121/86; PULSE 73; O2SAT 97
[2025-08-17 11:15] LABS: Hematocrit 41.0 % (36-47); Hemoglobin 12.80 g/dL (11.27-16.99); Mean Corpuscular HGB Conc 31.2 g/dL (30-55); Mean Corpuscular Hemoglobin 25.2 pg (27-33); Mean Corpuscular Volume 80.9 fl (85-98); Nucleated Red Blood Cells % 0 %; Platelet Count 203 10^3/cmm (157-399); Red Blood Count 5.07 10^6/uL (3.85-5.65); White Blood Count 6.59 10^3/uL (3.29-11.43)
--- NOTE | 2025-08-17 11:37 | XR_ITS ---
WS: [id number] XR sacrum coccyx min 2V [id number] REASON FOR EXAM: Trauma FINDINGS: Sacrum is intact without fracture. Coccyx is intact without fracture or dislocation. XR/XR sacrum coccyx min 2V [id number] IMPRESSION: No acute abnormality of the sacrum or coccyx.
[2025-08-17 11:45] LABS: Alanine Aminotransferase 74 U/L (0-33); Albumin Level 4.1 g/dL (3.5-5.2); Alkaline Phosphatase 103 U/L (35-105); Blood Urea Nitrogen 9 mg/dL (6-20); Calcium 9.8 mg/dL (8.5-10.5); Carbon Dioxide 24 mmol/L (22-29); Chloride 102 mmol/L (98-107); Globulin 2.7 g/dL (1.3-4.6); Glucose 83 mg/dL (65-115); Osmolality Calculated 282 mOsm/kg (285-295); Sodium 137 mmol/L (136-145); Total Protein 6.8 g/dL (6.6-8.7)
[2025-08-17 11:50] LABS: Anion Gap 15.3 (5-19); Aspartate Amino Transferase 42 U/L (0-32); Potassium 4.3 mmol/L (3.5-5.1)
[2025-08-17 11:51] VITALS: BP 156/64; PULSE 83; O2SAT 98
[2025-08-17 11:58] LABS: Glucose Urine UA Negative (Normal); Nitrate Urine Negative (Negative); Specific Gravity, Urine 1.006 (1.005-1.030)
[2025-08-17 12:00] LABS: Add Urine Microscopic? YES
[2025-08-17 12:03] LABS: HCG, Serum Qual Negative (Negative)
--- OUTSIDE RECORDS SUMMARY | 2025-08-17 19:48 | XMS_ITS | Data Portability ---
Author Organization AIR[facility], Jaun, [facility] Address [address] [facility] [address] [place] [address] Care Team Providers Care Temperature Inspector Name Role Phone JUSTINE KHAN Primary Care [...] qualitative , serum or plasma 2023 024 [facility], [address] [facility] [address], [address] [place], [address], 4 21:11:40 CBC 2023 024 LEON[facility], [address] [facility] [address], [address], [place], [address], 4 11:48:42 prolactin, serum 2023 024 [facility], [address] [facility] , [address], [place], [address], 4 21:11:39 TSH, serum or plasma 2023 024 [facility] ([facility]), [address] [place], [address], 4 14:31:19 FSH (follicle-s timulating hormone), serum 2023 024 [employer] [facility], [address] [facility] , [address], [place], [address], 4 21:11:38 testosteron e, free, serum 2023 024 [employer] [facility], [address] [facility] , [address], [place], [address], 4 21:11:40 estradiol, serum 2023 024 LEONARDO [employer] [facility], [address] [facility] , [address], [place], [address], 4 21:11:39 Referral orthopedic surgeon referral 2024 025 [email or web address] 4 Judith Nicole MD, [address] [place], [address], 5 08:44:31 Procedures None recorded. Surgeries None recorded. Imaging XR, knee, 3 view 2024 025 [email or web address] 2 [facility] ([facility]), [address] [place], [address], 5 15:30:20 MRI, knee, w/o contrast 2024 025 [email or web address] 4 [facility], [address] [place] [address], [address], 5 08:44:17 US, transvagina l - 32091 2023 024 [email or web address] 3 [facility] ([facility]), [address] [place], [address], 4 08:29:20 US, pelvis 2023 024 [email or web address] 2 [facility] ([facility]), [address] [place], [address], 4 13:37:32 Medication Orders None recorded. Patient [...] 6.4 x10 4.0-10 .5 Not Available [facility] [address] [facility] [address], [place], [address], 03/14/2024 11:48:42 03/14/20 24 03/14/2024 CBC RBC 5.27 x10 3.50-5 .50 Not Available [facility] [address] [facility] [address] [facility] [address], [place], [address], 03/14/2024 11:48:42 03/14/20 24 03/14/2024 CBC HGB 13.5 g/dL 12.0-1 6.0 Not Available [facility] [address] [address] [facility], [place], [address], 03/14/2024 11:48:42 03/14/20 24 03/14/2024 CBC HCT 41.3 % 37.0-4 7.0 Not Available [facility] [address] [facility] [address] [facility], [place], [address], 03/14/2024 11:48:42 03/14/20 24 03/14/2024 CBC MCV 78.4 fL 80.0-9 9.9 low Not Available [facility] [address] [facility] [address], [place], [address], 03/14/2024 11:48:42 03/14/20 24 03/14/2024 CBC MCH 25.6 pg 27.0-3 2.0 low Not Available [facility] [address] [facility], [place], [address], 03/14/2024 11:48:42 03/14/20 24 03/14/2024 CBC MCHC 32.7 g/dL 32.0-3 6.0 Not Available [facility] [address] [facility], [place], [address], 03/14/2024 11:48:42 03/14/20 24 03/14/2024 CBC RDW 15.5 % 11.5-1 4.5 high Not Available [facility] [address] [place] [address] [facility] [address], [place], [address], 03/14/2024 11:48:42 03/14/20 24 03/14/2024 CBC plt 283.9 x10 140.0- 451.0 Not Available [facility] [address] [facility], [place], [address], 03/14/2024 11:48:42 03/14/20 24 03/14/2024 CBC lymphocytes % 17.9 % 20.0-5 0.0 low Not Available [facility] [address] [facility], [place], [address], 03/14/2024 11:48:42 03/14/20 24 03/14/2024 CBC granulcytes % 73.2 % 30.0-7 0.0 high Not Available [facility] [address] [facility], [place], [address], 03/14/2024 11:48:42 03/14/20 24 03/14/2024 CBC monocytes % 6.7 % 2.0-16 .0 Not Available [facility] [address] [facility] [address], [place], [address], 03/14/2024 11:48:42 03/14/20 24 03/14/2024 CBC granulcytes# 4.7 x10 Not Chio ilable [facility] [address] [address], [place], [address], 03/14/2024 11:48:42 03/14/20 24 03/14/2024 CBC lymphocytes # 1.2 x10 Not Available [facility] [address] [address], [place], [address], 03/14/2024 11:48:42 03/14/20 24 03/14/2024 CBC monocytes # 0.4 x10 Not Avai lable [facility] [address] [address], [place], [address], 03/14/2024 11:48:42 03/14/20 24 03/16/2024 FSH FSH 8.4 mIU/m L normal Refer ence Range Folli cular Phase 2.5-1 0.2 Mid-c ycle Peak 3.1-1 7.7 Lutea l Phase 1.5- 9.1 Postm enopa usal 23.0- 116.3 Not Available [employer] [facility] [address] [place], [address], 03/16/2024 21:11:38 03/14/20 24 03/16/2024 PROLA CTIN prolactin 6.7 NG/mL normal Refer ence Range Femal es Non-p regna nt 3.0-3 0.0 Pregn ant 10.0- 209.0 Postm enopa usal 2.0-2 0.0 Not Available [facility] [address] [place], [address], 03/16/2024 21:11:39 03/14/20 24 03/16/2024 ESTRA DIOL [...] assay is jc lezama (orde r code 58023 ). Pleas e note: patie nts being [...] s. [facility] order code 73203 -Estr adiol , Ultra sensi tive LC/MS /MS demon strat es negli gible cross react ivity with fulve stran t. Not Available [employer] [facility] [address] [address] [place], [address], 03/16/2024 21:11:39 03/14/2003/16/2024 HCG, TOTAL , QL HCG, total, ql NEGATI VE see note: normal Refer ence Range : Refer ence Range Non-P regna nt: Negat jesús Pregn ant: Posit jesús Not Available [facility] [address] [address] [place], [address], 03/16/2024 21:11:40 03/14/20 24 03/16/2024 TESTO STERO NE, FREE testosterone , free 2.1 pg/mL 0.2-5. 0 MDF med fusio n [address] [facility] [address] [place] [place] [address] [phone] Ithie kaitlynn Malin MD, PhD Not Available [facility] [address] [place], [address], 03/16/2024 21:11:40 03/14/20 24 03/14/2024 TSH, serum or plasm a TSH 0.67 0.49-3 .82 normal Not Available [facility] ([facility]) [address] [place], [address], 03/14/2024 11:34:35 03/19/20 24 03/19/2024 US, pelvi s No observ ation record ed. [facility] [address] [place], [address], 04/01/2024 19:17:16 07/17/20 25 07/15/2025 XR, knee, 3 view No observ ation record ed. [facility] [address] [place], [address], 07/17/2025 12:36:51 Result Notes None recorded. Procedures Surgical History Date Name Laterality Status Provider Name and Address Organization Details Recorded Time Tonsillectomy completed [facility] 09/19/2023 12:49:59 Appendectomy completed [facility] 09/19/2023 12:50:06 delivery completed [facility] 09/19/2023 12:50:21 Imaging Results None recorded. Procedure Notes None recorded. Medical Equipment None Reported. Allergies Allergen ID Allergen Name Allergen Category Reaction Reaction Severity Criticality Documentation Date Start Date Code Code System Note Provider Name and Address Organization Details Recorded Time 73359 morphine sulfate medicatio n anaphylax is Not available Not available 04/28/2023 01565 RxNorm React ion: Anaph ylaxi s, Diffi culty flakita short; Comme nt: Recor ded 10/15 8:04A M by [place] doshi er, Offic e Visit ; Promo eyal; Valentina brizuela ce: *; Reaso n: Drug aller gy; ; Not Available [facility] 3 02:29:48 Medications Name Sig Start [...] Updated DateTime 4 160.02 cm 51.6 kg/m2 595610. 18 g 98 % 98 % 70 /min 18 /min 97.9 [degF] 126/72 mm[Hg] CHINA SUAREZ [facility] 4 10:36:09 Date Recorded Body height Body mass index (BMI) Body weight Body temperature Heart rate Oxygen saturation Oxygen saturation in Arterial blood by Pulse oximetry Provider Name and Address Organization Details Last Updated DateTime 5 160.02 cm 58.8 kg/m2 619541. 67 g 98.1 [degF] 105 /min 96 % 96 % Tessie Eugene [facility] 5 14:20:39 Date Recorded Body height Body mass index (BMI) Body weight Oxygen saturation Oxygen saturation in Arterial blood by Pulse oximetry Heart rate Respiratory rate Body temperature Systolic And Diastolic Provider Name and Address Organization Details Last Updated DateTime 3 160.02 cm 51.3 kg/m2 809412. 29 g 98 % 98 % 76 /min 18 /min 97.1 [degF] 130/72 mm[Hg] CHINA SUAREZ [facility] 3 12:46:54 Social History Question Answer Notes LastModified by Mocanaizat ion Details LastModified Time Tobacco Smoking Status Former Smoker Quit in 2013 CHINA aviles [facility] 09/19/2023 12:49:41 What Was The Date Of Your Most Recent Tobacco Screening? 07/15/2025 [email or web address] Information not available 07/15/2025 What Is Your [...] Time Tdap 05/28/2018 completed TREBA NEUSCHWANDER null, [facility] 09/19/2023 12:47:30 Hep B, unspecified formulation 02/22/2000 completed TREBA NEUSCHWANDER null, [facility] 09/19/2023 12:47:30 Hep B, unspecified formulation 08/22/1999 completed TREBA NEUSCHWANDER null, [facility] 09/19/2023 12:47:30 Hep B, unspecified formulation 09/26/1999 completed TREBA NEUSCHWANDER null, [facility] 09/19/2023 12:47:30 Past Encounters Encounter ID Performer Location Encounter Start Date Encounter Closed Date Diagnosis/Indication Diagnosis SNOMED-CT Code Diagnosis ICD10 Code Diagnosis IMO Codes Diagnosis Note [id number] Justine Khan MD [facility] ([facility]) [address] [place] [phone] 08/15/2023 09:12:40 08/17/2023 23:57:59 [id number] Justine Khan MD [facility] ([facility]) [address] [place] [phone] 09/19/2023 12:33:28 09/19/2023 15:27:03 Irregular periods 27374456 N92.6 Contracept ion care management 734329643 Z30.9 [id number] Justine Khan MD [facility]) [address] [place] [phone] 03/14/2024 09:53:41 03/14/2024 11:37:59 Low back pain 529446016 M54.50 Irregular periods 519844 07 N92.6 IUD check 885437457 Z30. 431 Abnormal progesterone 13 5519055 R94.7 Amenorrhea 89732285 N91. 2 Pain in pelvis 08080447 R10.2 [id number] Justine Khan MD [facility] ([facility]) [address] [place] [address] 03/19/2024 09:02:26 03/19/2024 14:08:57 Irregular intermenstrual bleeding 39526289 N92.1 [id number] ZAID VICTOR [facility] ([facility]) [address] [place] [address] 07/15/2025 14:07:30 07/15/2025 15:16:21 Pain of right knee joint 7626786986 66972 M25.561 [id number] Will send X ray to radiology. Will order MRI and refer to [facility] orthopedic s. Jonas wrap applied. RICE. OTC [...] Escobar Member ID Guarantor Name 07/15/2025 1 [facility] [id number] Cal Wray [id number] Cal Wray 07/15/2025 JENNY REYES [id number] [facility] Cal Wray Notes Date Note Type [...] ago and was WNL. Justine Khan MD [address] [place] [address], [phone], [facility] 09/21/2023 06:45:47 03/14/2024 text/html ROS as [...] the pain went away. Justine Khan MD [address] [place] [address], [phone], [facility] 03/19/2024 07:30:15 07/15/2025 text/html ROS as noted in the HPI walk in pt DOI: 06/19/2025PT works at [employer] and she was at the homecoming [...] ordered. Has not been done. ZAID VICTOR [address] [place] [address], [phone], [facility] 07/15/2025 15:06:59 OBGyn Episode No OBEpisode recorded.
== END 2025-08-17 12:33 | disposition home or self-care (01) ==
PROVIDERS: Emergency Provider Family Medicine; PCP Nurse Practitioner Family
DX: S06.0X0A Concussion without loss of consciousness, initial encounter (principal); Z87.891 Personal history of nicotine dependence; W01.0XXA Fall on same level from slipping, tripping and stumbling without subsequent striking against object, initial encounter
CPT/HCPCS: 36415; 70450; 72125; 72220; 80053; 81001; 84703; 85025; 99284